=== PATIENT | male | born 1975 | race Two or more races ===

== ENCOUNTER 2024-10-04 13:11 | Emergency (ER) | payer MEDICAID ==
[~2024-10-04] VITALS: Ht 170.2 cm; Wt 77.1 kg
[2024-10-04] MEDS ORDERED: NALO4SPR BNOSTRILS (13:39)
[2024-10-04 14:01] VITALS: BP 133/74; TEMP 98.6; O2SAT 98
== END 2024-10-04 14:01 | disposition home or self-care (01) ==
LOC: ER 13:25
DX: F19.10 Other psychoactive substance abuse, uncomplicated (principal); Z59.00 Homelessness unspecified; Z60.2 Problems related to living alone